=== PATIENT | male | born 1995 | race African-American/Black ===

== ENCOUNTER 2018-08-04 22:02 | Emergency (ER) | payer SELFPAY ==
[~2018-08-04] VITALS: Ht 182.9 cm; Wt 68.0 kg
[2018-08-04 23:00] VITALS: BP 145/82
[2018-08-05] MEDS: KETOROLAC 30 MG/ML VIAL. IM ONE (00:14)
[2018-08-05] MEDS: DEXAMETHASONE 4 MG TABLET PO ONE (00:14)
[2018-08-05] MEDS ORDERED: ORPH100T PO (00:22)
[2018-08-05] MEDS ORDERED: PRED20TA PO (00:22)
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
--- NOTE | 2018-08-05 01:26 | RAD ---
PROCEDURE: CHEST PA LATERAL CLINICAL INDICATION: chest pain COMPARISON: None FINDINGS: No pneumothorax identified. Cardiac and mediastinal contours unremarkable. No pulmonary consolidation or acute airspace disease. No acute osseous abnormalities identified. IMPRESSION: No pulmonary consolidation or acute airspace disease. Electronically signed by: Cyrus Vasquez DO (08/05/2018 1:22 AM) [facility]
== END 2018-08-05 00:35 | disposition home or self-care (01) ==
LOC: ER 22:02
DX: R07.89 Other chest pain (principal); R05 Cough; R06.02 Shortness of breath
CPT/HCPCS: 71046; 96372; 99284; J1885; J8540